=== PATIENT | female | born 1925 | race Caucasian/White ===

== ENCOUNTER → 2016-03-24 | Outpatient (CLI) | payer MEDICARE, BC ==
[~2016-03-24] MED LIST: NORCO 10/3251 EA ORAL; NORCO 5-325 TA1 EACH ORAL; SYNTHROID75 MCG ORAL; TRAMADOL HCL50 MG ORAL; TRAZODONE HCL150 MG ORAL; ZOLPIDEM TARTRAT5 MG ORAL
--- NOTE | 2016-04-03 12:59 | Diagnostic Imaging Report ---
Indication: Dyspnea Comparison: None 2 views of the chest obtained. There is a scoliosis present with generalized osteopenia. Heart is normal in size. The lungs are clear. In pression: No acute cardiopulmonary disease
== END | disposition home or self-care (01) ==
LOC: RAD 11:33
DX: R05 Cough (principal)
CPT/HCPCS: 71020